=== PATIENT | female | born 1990 | race Two or more races ===

== ENCOUNTER 2023-01-13 22:16 | Emergency (ER) | payer OTHER ==
[~2023-01-13] VITALS: Ht 167.6 cm; Wt 105.2 kg
[2023-01-13 23:09] LABS: BASOPHILS # (AUTO) 0.1 K/uL (0.0-0.2); BASOPHILS % (AUTO) 0.4 % (0.0-2.0); EOSINOPHILS # (AUTO) 0.4 K/uL (0.0-0.7); EOSINOPHILS % (AUTO) 3.1 % (0.0-6.0); HEMATOCRIT 39 % (33-45); HEMOGLOBIN 12.4 g/dL (11.5-14.8); LYMPHOCYTES # (AUTO) 2.6 K/uL (0.8-4.8); LYMPHOCYTES % (AUTO) 19.3 % (20.0-44.0); MEAN CORPUSCULAR HEMOGLOBIN 26 PG (26.0-33.0); MEAN CORPUSCULAR HGB CONC 32 g/dl (31.0-36.0); MEAN CORPUSCULAR VOLUME 80 fL (82-100); MONOCYTES # (AUTO) 0.8 K/uL (0.1-1.30); MONOCYTES % (AUTO) 6.2 % (2.0-12.0); NEUTROPHILS # (AUTO) 9.4 K/uL (1.8-8.9); PLATELET COUNT (AUTO) 368 K/uL (150-450); RED BLOOD CELL COUNT(AUTO) 4.81 MIL/uL (4.0-5.2); RED CELL DISTRIBUTION WIDTH 17.1 % (11.5-15.0); WHITE BLOOD COUNT (AUTO) 13.3 K/uL (4.3-11.0)
[2023-01-13 23:18] LABS: CALCIUM, SERUM 8.9 mg/dL (8.5-10.1); CREATININE 0.9 mg/dL (0.6-1.3); POTASSIUM 3.4 mmol/L (3.5-5.1)
[2023-01-14 00:11] VITALS: BP 128/79; TEMP 97.5; O2SAT 100
== END 2023-01-14 00:11 | disposition home or self-care (01) ==
LOC: ER 22:19
DX: R07.89 Other chest pain (principal)
CPT/HCPCS: 36415; 71045-TC; 80048-TC; 84484-TC; 85025-TC; 85378-TC

== ENCOUNTER 2025-04-30 19:13 | Emergency (ER) | payer OTHER ==
[~2025-04-30] VITALS: Ht 170.2 cm; Wt 70.3 kg
[2025-04-30] MEDS ORDERED: IBUPROFEN 600 MG TABLET ONE (19:57)
[2025-04-30] MEDS ORDERED: METHOCARBAMOL (500MG) 500 MG TABLET ONE (19:58)
[2025-04-30] MEDS ORDERED: IBUP-1490 PO (19:59)
[2025-04-30] MEDS ORDERED: METH-647 PO (19:59)
[2025-04-30] MEDS: METHOCARBAMOL (500MG) 500 MG TABLET PO ONE (20:03)
[2025-04-30] MEDS: IBUPROFEN 600 MG TABLET PO ONE (20:03)
[2025-04-30 20:18] VITALS: BP 113/71; TEMP 98; O2SAT 98
== END 2025-04-30 20:19 | disposition home or self-care (01) ==
LOC: ER 19:19
DX: S39.012A Strain of muscle, fascia and tendon of lower back, initial encounter (principal); S13.4XXA Sprain of ligaments of cervical spine, initial encounter; V89.0XXA Person injured in unspecified motor-vehicle accident, nontraffic, initial encounter; Y93.89 Activity, other specified; Y92.410 Unspecified street and highway as the place of occurrence of the external cause; Y99.9 Unspecified external cause status